=== PATIENT | female | born 1965 | race Caucasian/White ===

== ENCOUNTER → 2019-04-24 | Outpatient (CLI) | payer SELFPAY ==
--- NOTE | 2019-04-24 11:10 | Diagnostic Imaging Report ---
EXAMINATION: Right foot at 1020h. INDICATION: Foot pain 3 views were obtained. There are no prior studies available for comparison. There is deformity of the basis of the 3rd and 4th metatarsals and to a lesser extent the 2nd metatarsal. These findings may be a sequela of prior trauma. There is no acute bony abnormality noted. The Lisfranc joint was not well visualized but shows no definite abnormality. The soft tissues are unremarkable. IMPRESSION: 1. The deformity of the bases of the 2nd, 3rd and 4th metatarsals is most likely a sequela of prior trauma. If previous studies are available they would be helpful for comparison. 2. There is no acute bony abnormality noted. Dictated by: Dictated on workstation # [id number]
== END ==
LOC: RAD 09:59
PROVIDERS: ATTEND Pediatrics
DX: M21.961 Unspecified acquired deformity of right lower leg (principal)
CPT/HCPCS: 73630